=== PATIENT | female | born 1955 | race Caucasian/White ===

== ENCOUNTER 2017-08-31 06:23 | Emergency (ER) | payer SELFPAY ==
[2017-08-31] MEDS ORDERED: Ketorolac INJ* 60 MG/2 ML VIAL IM ONE (07:27)
[2017-08-31 08:21] LABS: ABS Basophils 0.1 10^3/ul (0-0.2); ABS Eosinophils 0.1 10^3/ul (0-0.6); ABS Lymphocytes 1.1 10^3/ul (1.0-4.8); ABS Monocytes 0.3 10^3/ul (0-0.8); ABS Neutrophils 3.9 10^3/ul (1.5-7.7); ABS Nucleated RBC 0 10^3/ul; Eosinophil % 1.8 % (0-6); Hematocrit 43 % (35-47); Hemoglobin 14.4 g/dl (12.0-16.0); Lymphocyte % 20.3 % (25-47); Mean Corpuscular HGB Conc 34 g/dl (31-36); Mean Corpuscular Hemoglobin 31 pg (27-31); Mean Corpuscular Volume 91 fL (80-97); Mean Platelet Volume 8.2 um3 (7.4-10.4); Nucleated Red Blood Cells % 0.1; Platelet Count 201 10^3/ul (150-450); Red Blood Count 4.68 10^6/ul (4.0-5.4); Red Cell Distribution Width 14 % (10.5-15); White Blood Count 5.5 10^3/ul (3.5-10.8)
[2017-08-31 08:31] LABS: EGFR Non-African American 107.5 (>60)
--- NOTE | 2017-08-31 08:42 | RAD ---
INDICATION: 3 days lower lateral RIGHT rib pain without proceeding injury. COMPARISON: March 15, 2016 TECHNIQUE: Dual energy PA and routine lateral views of the chest were obtained. 3 view RIGHT unilateral rib series. REPORT: Elevated lung volumes and both diffuse mild prominence of the interstitial markings and patchy rarefaction of the mid to upper lung zone interstitial markings. RIGHT nipple shadow noted. No focal pulmonary lesion, compelling alveolar consolidation, pleural effusion, pneumothorax. The heart, pulmonary vasculature, and mediastinal contours are unremarkable. Thoracic degenerative spondylosis. No RIGHT rib fracture or suspicious focal osseous lesion evident. Unremarkable soft tissue contours. Gallbladder fossa level surgical clips. IMPRESSION: Stigmata of obstructive lung disease. No acute pulmonary or cardiac process evident. No RIGHT rib fracture evident.
[2017-08-31 09:22] LABS: Urine Appearance Clear; Urine Blood Negative (Negative); Urine Color Straw; Urine Ketones Negative (Negative); Urine Protein Negative (Negative); Urine Specific Gravity 1.009 (1.010-1.030); Urine Urobilinogen Negative (Negative)
[2017-08-31 11:07] VITALS: BP 130/87
--- NOTE | 2017-08-31 14:59 | ED ---
Agapito Lan Julia, scribed for Nereida Paul MD on 08/31/17 at 0725 . HPI Chest Pain - HPI Summary HPI Summary: This patient is a 62 year old F presenting to [facility] with a chief complaint of right anterior lower rib pain past few days. Patient denies fever, nausea, vomiting, and recent trauma. The patient rates the pain 8/10 in severity. Pt denies calf pain. Symptoms aggravated by movement and deep breaths. PMHx includes cholecystectomy. Denies PMHx of DVT, HTN, and DM - History of Current Complaint Chief Complaint: EDAbdPain Time Seen by Provider: 08/31/17 07:11 Hx Obtained From: Patient Onset/Duration: Started Days Ago Pain Intensity: 8 Pain Scale Used: 0-10 Numeric Chest Pain Location: Right Anterior - lower ribs Aggravating Factor(s): Movement, Deep Breaths Associated Signs and Symptoms: Positive: Negative. Negative: Calf Pain/Swelling - Allergy/Home Medications Allergies/Adverse Reactions: Allergies Allergy/AdvReac Type Severity Reaction Status Date / Time No Known Allergies Allergy Verified 08/31/17 06:27 Home Medications: Home Medications NK [No Home Medications Reported] 08/31/17 [History Confirmed 08/31/17] PMH/Surg Hx/FS Hx/Imm Hx Endocrine/Hematology History: Denies: Hx Diabetes Cardiovascular History: Denies: Hx Deep Vein Thrombosis, Hx Hypertension Infectious Disease History: No Infectious Disease History: Denies: Traveled Outside the [place] in Last 30 Days - Family History Known Family History: Positive: Diabetes - brother, Other - mother lung cancer - Social History Alcohol Use: None Substance Use Type: Reports: None Hx Tobacco Use: Yes Smoking Status (MU): Light Every Day Tobacco Smoker Review of Systems Negative: Fever Positive: Chest Pain Negative: Vomiting, Nausea All Other Systems Reviewed And Are Negative: Yes Physical Exam - Summary Physical Exam Summary: Appearance: Well-appearing, Well-nourished Skin: Warm, Dry, No rash Eyes: Normal, PERRL, EOMI, sclera anicteric ENT: Normal Neck: Supple, nontender Respiratory: Clear to auscultation Chest: TTP of the right anterior lower ribs Cardiovascular: S1, S2, no murmur, no rub, no gallop, Abdomen: Soft, nontender, no organomegaly Bowel sounds: Present Musculoskeletal: Strength/ROM Intact, no edema, pulses symmetrical tenderness to the R anterior chest and lower ribs Neurological: Normal, A&Ox3, cranial nerves II-XII WNL, follows commands, gait not tested, sensation intact to pin and light touch Psychiatric: affect normal, behavior appropriate, dressed appropriately, judgment intact Triage Information Reviewed: Yes Vital Signs On Initial Exam: Initial Vitals Temp Pulse Resp BP Pulse Ox 97.1 F 71 16 106/62 100 08/31/17 06:25 08/31/17 06:25 08/31/17 06:25 08/31/17 06:25 08/31/17 06:25 Vital Signs Reviewed: Yes Diagnostics - Vital Signs Vital Signs Temp Pulse Resp BP Pulse Ox 08/31/17 07:18 61 111/73 99 08/31/17 07:00 68 98 08/31/17 06:49 68 99 08/31/17 06:48 65 110/75 99 08/31/17 06:25 97.1 F 71 16 106/62 100 - Laboratory Lab Results: Lab Results 08/31/17 08/31/17 08/31/17 Range/Units 08:05 08:05 08:06 WBC 5.5 (3.5-10.8) 10^3/ul RBC 4.68 (4.0-5.4) 10^6/ul Hgb 14.4 (12.0-16.0) g/dl Hct 43 (35-47) % MCV 91 (80-97) fL MCH 31 (27-31) pg MCHC 34 (31-36) g/dl RDW 14 (10.5-15) % Plt Count 201 (150-450) 10^3/ul MPV 8.2 (7.4-10.4) um3 Neut % (Auto) 70.7 (38-83) % Lymph % (Auto) 20.3 L (25-47) % Livingston % (Auto) 6.2 (0-7) % Eos % (Auto) 1.8 (0-6) % Baso % (Auto) 1.0 (0-2) % Absolute Neuts (auto) 3.9 (1.5-7.7) 10^3/ul Absolute Lymphs (auto) 1.1 (1.0-4.8) 10^3/ul Absolute Monos (auto) 0.3 (0-0.8) 10^3/ul Absolute Eos (auto) 0.1 (0-0.6) 10^3/ul Absolute Basos (auto) 0.1 (0-0.2) 10^3/ul Absolute Nucleated RBC 0 10^3/ul Nucleated RBC % 0.1 APTT 29.0 (26.0-36.3) seconds D-Dimer, Quantitative < 200 (Less Than 230) ng/mL Sodium 139 (139-145) mmol/L Potassium 4.3 (3.5-5.0) mmol/L Chloride 104 (101-111) mmol/L Carbon Dioxide 30 (22-32) mmol/L Anion Gap 5 (2-11) mmol/L BUN 12 (6-24) mg/dL Creatinine 0.57 (0.51-0.95) mg/dL Est GFR ( Amer) 138.2 (>60) Est GFR (Non-Af Amer) 107.5 (>60) BUN/Creatinine Ratio 21.1 H (8-20) Glucose 99 (70-100) mg/dL Lactic Acid (0.5-2.0) mmol/L Calcium 9.3 (8.6-10.3) mg/dL Total Bilirubin 0.60 (0.2-1.0) mg/dL AST 10 L (13-39) U/L ALT 10 (7-52) U/L Alkaline Phosphatase 77 (34-104) U/L Troponin I 0.00 (<0.04) ng/mL B-Natriuretic Peptide ( - 100) pg/mL Total Protein 6.1 L (6.4-8.9) g/dL Albumin 3.8 (3.2-5.2) g/dL Globulin 2.3 (2-4) g/dL Albumin/Globulin Ratio 1.7 (1-3) Lipase < 10 L (11.0-82.0) U/L Urine Color Urine Appearance Urine pH (5-9) Ur Specific Dingle (1.010-1.030) Urine Protein (Negative) Urine Ketones (Negative) Urine Blood (Negative) Urine Nitrate (Negative) Urine Bilirubin (Negative) Urine Urobilinogen (Negative) Ur Leukocyte Esterase (Negative) Urine WBC (Auto) (Absent) Urine RBC (Auto) (Absent) Ur Squamous Epith Cells (Absent) Urine Bacteria (Absent) Urine Glucose (Negative) 08/31/17 08/31/17 08/31/17 Range/Units 08:06 08:06 09:05 WBC (3.5-10.8) 10^3/ul RBC (4.0-5.4) 10^6/ul Hgb (12.0-16.0) g/dl Hct (35-47) % MCV (80-97) fL MCH (27-31) pg MCHC (31-36) g/dl RDW (10.5-15) % Plt Count (150-450) 10^3/ul MPV (7.4-10.4) um3 Neut % (Auto) (38-83) % Lymph % (Auto) (25-47) % Livingston % (Auto) (0-7) % Eos % (Auto) (0-6) % Baso % (Auto) (0-2) % Absolute Neuts (auto) (1.5-7.7) 10^3/ul Absolute Lymphs (auto) (1.0-4.8) 10^3/ul Absolute Monos (auto) (0-0.8) 10^3/ul Absolute Eos (auto) (0-0.6) 10^3/ul Absolute Basos (auto) (0-0.2) 10^3/ul Absolute Nucleated RBC 10^3/ul Nucleated RBC % APTT (26.0-36.3) seconds D-Dimer, Quantitative (Less Than 230) ng/mL Sodium (139-145) mmol/L Potassium (3.5-5.0) mmol/L Chloride (101-111) mmol/L Carbon Dioxide (22-32) mmol/L Anion Gap (2-11) mmol/L BUN (6-24) mg/dL Creatinine (0.51-0.95) mg/dL Est GFR ( Amer) (>60) Est GFR (Non-Af Amer) (>60) BUN/Creatinine Ratio (8-20) Glucose (70-100) mg/dL Lactic Acid 1.3 (0.5-2.0) mmol/L Calcium (8.6-10.3) mg/dL Total Bilirubin (0.2-1.0) mg/dL AST (13-39) U/L ALT (7-52) U/L Alkaline Phosphatase (34-104) U/L Troponin I (<0.04) ng/mL B-Natriuretic Peptide 55 ( - 100) pg/mL Total Protein (6.4-8.9) g/dL Albumin (3.2-5.2) g/dL Globulin (2-4) g/dL Albumin/Globulin Ratio (1-3) Lipase (11.0-82.0) U/L Urine Color Straw Urine Appearance Clear Urine pH 7.0 (5-9) Ur Specific Dingle 1.009 L (1.010-1.030) Urine Protein Negative (Negative) Urine Ketones Negative (Negative) Urine Blood Negative (Negative) Urine Nitrate Negative (Negative) Urine Bilirubin Negative (Negative) Urine Urobilinogen Negative (Negative) Ur Leukocyte Esterase Trace A (Negative) Urine WBC (Auto) Absent (Absent) Urine RBC (Auto) Absent (Absent) Ur Squamous Epith Cells Present A (Absent) Urine Bacteria Absent (Absent) Urine Glucose Negative (Negative) Result Diagrams: 08/31/17 08:05 08/31/17 08:05 Lab Statement: Any lab studies that have been ordered have been reviewed, and results considered in the medical decision making process. - Radiology CXR Radiology Interpretation Completed By: Radiologist - Stigmata of obstructive lung disease. No acute pulmonary or cardiac process evident. No RIGHT rib fracture evident. Dr. Paul has reviewed this report. R Rib XR Xray Interpretation: No Acute Changes - seen in CXR - EKG 0738 Cardiac Rate: NL EKG Rhythm: Sinus Rhythm - 60 BPM Re-Evaluation - Re-Evaluation 1 Re-Evaluation Time: 10:40 Comment: Discussed results with patient. Chest Pain Course/Dx - Course Course Of Treatment: 62 y/o F presents to the ED with right anterior rib pain. Work up is unremarkable with a negative D-dimer and troponin. CXR and Rib XR were obtained and are unremarkable. Toradol was given with much improvement. Pt' s pain is most likely musculoskeltal pain due to reproducable nature. Pt requested a note for work which was granted. Pt is hemodynamically stable and is safe for discharge. - Diagnoses Provider Diagnoses: Rib pain Discharge - Sign-Out/Discharge Documenting (check all that apply): Discharge/Admit/Transfer - Discharge Plan Condition: Stable Disposition: HOME Patient Education Materials: Chest Pain (ED), Abdominal Pain (ED), Chest Wall Pain (ED) Forms: *Work Release Referrals: [facility] [place] [facility]ERR[facility] [Outside] (Find a primary care physician if needed. ) - Billing Disposition and Condition Condition: STABLE Disposition: HOME The documentation as recorded by the Agapito menard Julia accurately reflects the service I personally performed and the decisions made by , Nereida Paul MD.
--- NOTE | 2017-08-31 16:07 | RAD ---
INDICATION: 3 days of atraumatic right lateral rib pain COMPARISON: Same day chest x-ray TECHNIQUE: 3 views of the right ribs were obtained. FINDINGS: No fracture or significant focal osseous abnormality is seen. No pneumothorax is apparent. Limited views demonstrate grossly clear lungs. IMPRESSION: No radiographically apparent displaced rib fracture or pneumothorax. If the patient's symptoms persist, follow-up imaging is recommended.
== END 2017-08-31 11:06 | disposition home or self-care (01) ==
LOC: ED 06:23
DX: R07.81 Pleurodynia (principal); F17.200 Nicotine dependence, unspecified, uncomplicated; Z90.49 Acquired absence of other specified parts of digestive tract
CPT/HCPCS: 36415; 71046; 80053; 81003; 81015; 83605; 83690; 83880; 84484; 85025; 85379; 85730; 87086; 93005; 96372; 99283; J1885

== ENCOUNTER 2019-01-04 10:35 | Emergency (ER) | payer SELFPAY ==
[2019-01-04] MEDS ORDERED: NS 0.9% 1000 ML** 1,000 ML IV ONE (10:59)
--- NOTE | 2019-01-04 11:04 | ED ---
Dizziness - HPI Summary HPI Summary: The patient is a 63 y/o F presenting to [facility] accompanied by son with a chief complaint of sudden onset dizziness onset this morning while she was work. She reports that she was standing at work when she began coughing and felt lightheaded. She states she has been coughing with phlegm production likely secondary to a cold that she currently has. She has mild SOB and chest congestion with the cough. During the event, she was diaphoretic. She additionally notes that she has been experiencing myalgia in the bilateral thighs for a while that is worse on the right side. She denies any fever, chills, erythema of eyes, sore throat, abd pain, nausea, vomiting, dysuria, hematuria, rash, or syncope. She notes that she is exposed to children with cold symptoms as well. No cardiac PMHx or FHx. Light every day smoker, no EtOH, no substance use. Medications reviewed. Allergies noted. - History Of Current Complaint Chief Complaint: EDDizziness Stated Complaint: LIGHTHEADED,COUGH PER PT Time Seen by Provider: 01/04/19 10:40 Hx Obtained From: Patient Onset/Duration: Suddenly Timing: Hours Severity Initially: Moderate Severity Currently: Mild Character: Lightheaded, Dizzy Aggravating Factor(s): Nothing Alleviating Factor(s): Nothing Associated Signs And Symptoms: Positive: Diaphoresis, SOB, Other: - Positive: productive cough, myalgia in the bilateral thighs. Negative: erythema of eyes, sore throat, abd pain, dysuria, hematuria, rash, syncope.. Negative: Nausea, Vomiting, Chest Pain, Fever, Chills - Allergies/Home Medications Allergies/Adverse Reactions: Allergies Allergy/AdvReac Type Severity Reaction Status Date / Time No Known Allergies Allergy Verified 01/04/19 10:36 PMH/Surg Hx/FS Hx/Imm Hx Endocrine/Hematology History: Denies: Hx Diabetes Cardiovascular History: Denies: Hx Deep Vein Thrombosis, Hx Hypertension - Surgical History Surgical History: None Surgery Procedure, Year, and Place: none Infectious Disease History: No Infectious Disease History: Denies: Traveled Outside the [place] in Last 30 Days - Family History Known Family History: Positive: Diabetes - brother, Other - mother lung cancer Negative: Cardiac Disease - Social History Alcohol Use: None Hx Substance Use: No Substance Use Type: Reports: None Hx Tobacco Use: Yes Smoking Status (MU): Light Every Day Tobacco Smoker Review of Systems Positive: Skin Diaphoresis. Negative: Fever, Chills Negative: Erythema Negative: Sore Throat Negative: Chest Pain Positive: Shortness Of Breath, Cough - productive Negative: Abdominal Pain, Vomiting, Nausea Negative: dysuria, hematuria Positive: Myalgia - bilateral thighs worse on right Negative: Rash Neurological: Other - dizziness/lightheadedness Negative: Syncope All Other Systems Reviewed And Are Negative: Yes Physical Exam - Summary Physical Exam Summary: Constitutional: Well-developed, Well-nourished, Alert. (-) Distressed Skin: Warm, Dry HENT: Normocephalic; Atraumatic Eyes: Conjunctiva normal Neck: Musculoskeletal ROM normal neck. (-) JVD, (-) Stridor, (-) Tracheal deviation Cardio: Rhythm regular, rate normal, Heart sounds normal; Intact distal pulses; The pedal pulses are 2+ and symmetric. Radial pulses are 2+ and symmetric. (-) Murmur Pulmonary/Chest wall: Diminished breath sounds. (-) Respiratory distress, (-) Wheezes, (-) Rales Abd: Soft. (-) Tenderness, (-) Distension, (-) Guarding, (-) Rebound Musculoskeletal: (-) Edema Lymph: (-) Cervical adenopathy Neuro: Alert, Oriented x3, Strength normal, Cranial nerves II-XII are grossly intact. (-) Dysmetria, (-) Nystagmus, (-) Ataxia by finger to nose testing, (-) Sensory deficit. Psych: Mood and affect Normal Triage Information Reviewed: Yes Vital Signs On Initial Exam: Initial Vitals Temp Pulse Resp BP Pulse Ox 97.8 F 78 18 130/69 94 01/04/19 10:36 01/04/19 10:36 01/04/19 10:36 01/04/19 10:36 01/04/19 10:36 Vital Signs Reviewed: Yes Diagnostics - Vital Signs Vital Signs Temp Pulse Resp BP Pulse Ox 01/04/19 10:36 97.8 F 78 18 130/69 94 - Laboratory Result Diagrams: 01/04/19 10:56 01/04/19 10:56 Lab Statement: Any lab studies that have been ordered have been reviewed, and results considered in the medical decision making process. - Radiology CXR Radiology Interpretation Completed By: Radiologist Summary of Radiographic Findings: Impression: No active cardiopulmonary disease. ED physician has reviewed this report. - EKG 1046 Cardiac Rate: NL - 76 bpm EKG Rhythm: Sinus Rhythm Summary of EKG Findings: NSR at 76 bpm. No STEMI. Re-Evaluation - Re-Evaluation First Eval Re-Evaluation Time: 12:20 Change: Improved Comment: Pt states improvment with respiratory treatment. We discussed all results and discharge plan. Dizzy Course/Dx - Course Course Of Treatment: Pt is a 63 y/o F with cc of sudden onset episode of dizziness and lightheadedness while standing at work today with productive cough , SOB, and diaphoresis during the event. Additionally c/o myalgia in the bilateral thighs but denies any fever, chills, or CP. No cardiac PMHx of FHx. Upon physical exam, the patient exhibits diminished breath sounds. Blood work reveals RBCs 4.91, MCH 32, BUN/creatinine ratio 22.8, and TSH 0.21, but is otherwise insignificant for abnormalities. UA obtained and reveals trace ketones , 1+ blood, 2+ RBCs, and presence of squamous epithelial cells. EKG at 1046 reveals NSR at 76 bpm. Chest x-ray impression is negative for active cardiopulmonary disease. In the ED course, the patient was administered fluids, Duoneb, and Prednisone. There are no signs of PNA or sepsis. We discussed all results and plan for discharge to follow up with her PCP for hematuria today, rx for Prednisone and Albuterol inhaler. She understands and agrees with this plan. - Diagnoses Provider Diagnoses: Bronchitis, Hematuria Discharge ED - Sign-Out/Discharge Documenting (check all that apply): Patient Departure - Patient will be discharged home. Patient Received Moderate/Deep Sedation with Procedure: No - Discharge Plan Condition: Improved Disposition: HOME Prescriptions: Albuterol HFA INHALER* [Ventolin HFA Inhaler*] 1 - 2 puff INH Q4H PRN #1 mdi PRN Reason: Cough predniSONE TAB* [Deltasone TAB*] 50 mg PO DAILY #4 tab Patient Education Materials: Dehydration (ED), Acute Bronchitis (ED), Hematuria (ED) Forms: *Work Release Referrals: Nehal Zelaya NP [Primary Care Provider] - 2 Days Additional Instructions: Follow up with your primary care provider in 2-3 days concerning the blood in your urine. Return to the emergency department for any new or worsening symptoms. - Billing Disposition and Condition Condition: IMPROVED Disposition: Home - Attestation Statements Document Initiated by Sita: Yes Documenting Scribe: Ami Moscoso Provider For Whom Sita is Documenting (Include Credential): Dr. Severiano Roger MD Scribe Attestation: Ami Lan scribed for Dr. Severiano Roger MD on 01/12/19 at 1153. Scribe Documentation Reviewed: Yes Provider Attestation: The documentation as recorded by the Ami menard accurately reflects the service I personally performed and the decisions made by me, Dr. Severiano Roger MD Status of Scribe Document: Viewed
[2019-01-04] MEDS ORDERED: Albuterol/Ipratropium NEB.SOL* Albuterol 2.5 MG/Ipratropium 0.5 MG 3 ML INH ONE (11:06)
[2019-01-04 11:11] LABS: ABS Eosinophils 0.1 10^3/ul (0-0.6); ABS Lymphocytes 1.3 10^3/ul (1.0-4.8); ABS Monocytes 0.3 10^3/ul (0-0.8); ABS Neutrophils 4.6 10^3/ul (1.5-7.7); Eosinophil % 1.5 %; Hematocrit 45 % (35-47); Hemoglobin 15.4 g/dL (12.0-16.0); Lymphocyte % 20.1 %; Mean Corpuscular HGB Conc 34 g/dL (31-36); Mean Corpuscular Hemoglobin 32 pg (27-31); Mean Corpuscular Volume 92 fL (80-97); Mean Platelet Volume 8.5 fL (7.4-10.4); Nucleated Red Blood Cells % 0.1; Platelet Count 228 10^3/uL (150-450); Red Blood Count 4.91 10^6 /uL (3.70-4.87); Red Cell Distribution Width 13 % (10-15); White Blood Count 6.2 10^3/uL (3.5-10.8)
[2019-01-04 11:30] LABS: Troponin I 0.01 ng/mL (<0.04)
[2019-01-04 11:31] LABS: Albumin 4.2 g/dL (3.2-5.2); Albumin/Globulin Ratio 1.9 (1-3); BUN/Creatinine Ratio 22.8 (8-20); Calcium 9.6 mg/dL (8.6-10.3); EGFR African American 129.6 (>60); EGFR Non-African American 107.1 (>60); Globulin 2.2 g/dL (2-4); Potassium 3.8 mmol/L (3.5-5.0); Total Bilirubin 0.5 mg/dL (0.2-1.0); Total Protein 6.4 g/dL (6.4-8.9)
[2019-01-04 11:43] LABS: TSH (Thyroid Stimulating Horm) 0.21 mcIU/mL (0.34-5.60)
[2019-01-04 12:08] LABS: Urine Appearance Cloudy; Urine Bacteria Absent (Absent); Urine Bilirubin Negative (Negative); Urine Blood 1+ (Negative); Urine Color Yellow; Urine Glucose Negative (Negative); Urine Ketones Trace (Negative); Urine Nitrite Negative (Negative); Urine Protein Negative (Negative); Urine Red Blood Cell 2+(6-10/hpf) (Absent); Urine Specific Gravity 1.025 (1.010-1.030); Urine Squamous Epithelial Cell Present (Absent); Urine Urobilinogen Negative (Negative); Urine White Blood Cell Trace(0-5/hpf) (Absent)
[2019-01-04] MEDS ORDERED: predniSONE TAB* 20 MG PO ONE (12:16)
[2019-01-04 12:47] VITALS: BP 126/75
== END 2019-01-04 12:35 | disposition home or self-care (01) ==
LOC: ED 10:35
DX: J40 Bronchitis, not specified as acute or chronic (principal); R31.9 Hematuria, unspecified; F17.200 Nicotine dependence, unspecified, uncomplicated; Z79.899 Other long term (current) drug therapy
CPT/HCPCS: 36415; 71045; 80053; 81003; 81015; 83605; 83735; 84443; 84484; 85025; 87086; 93005; 96360; 96361; 99284; A9270-GY; J7512

== ENCOUNTER 2019-07-15 10:18 | Emergency (ER) | payer SELFPAY ==
--- OUTSIDE RECORDS SUMMARY | 2019-07-15 10:25 | XMS REPORT | Continuity of Care Document ---
:1955 Author Organization [address] [place] [address] [address] [place] [id number] Phone Care Team Providers Name Role Phone ARIELLA HE NP Unavailable Unavailable Allergies, Adverse Reactions, Alerts Substance Reaction Status No Known Allergies Active Medications Medication Instructions Dosage Effective Dates Status Comments (start - stop) ibuprofen 600 mg take 1 tablet by oral 600 MG - Active tablet route every 6 hours as needed with food prednisone 10 mg take 4 tabs for 4 - Active tablet days, then 3 tabs for 3 days, then 2 tabs for 2 days, then 1 tab for 1 day Problems Condition Effective Dates (start - stop) Clinical Status Hematuria, unspecified type Hematuria, unspecified type Hand pain, right Encounter for routine adult health examination without abnormal findings Bicipital tendonitis of left shoulder Body mass index (BMI) of 23.0 to 23.9 in adult Acute non-recurrent frontal sinusitis Screening mammogram, encounter for Procedures Procedure Date Urinalysis, automated, w/o scope Results Test Name Date and Time Measure Units Reference Range Abnormal Flag Status Comments Panel Description: Bacteria identified Preliminary SPECIMEN: collection methods: URINE in Urine by Culture CLEAN See Preliminary Name: NICK MADISON VOIDED 11:24:00 comment : 1955 Sex: Salgado# Loc URINE [facility] Site [id number] CULT [facility] URNE 01/30/19 CLEAN VOIDED URINE CULT PRELIM NO GROWTH LESS THAN 1 DAY.REIS FOR RESULTS: - NEW RESULTATT.PHYS.: ARIELLA HE LOCATION: [facility]--ADM.DATE: 01/30/19 PATIENT : NICK MADISON MICROBIOLOGYPRINTED: 01/31/19 09:54 REGULAR 2 PAGE: 2 of 1 1NG,,[id number],NG,,[id number],

Panel Description: Non-Supercalender Operator Cytology Specimen Final Non-Supercalender Operator Cytology 11:24:00 SEE BELOW Final NG,, [id number], Specimen Briseida Ramesh M.D., Medical Office Technician - Dept. of Laboratory Medicine [facility], [address] [place] [address] Pgmz NICK MADISON [id number] 1955 63 Y MR# [id number] [facility] Lab ACC [id number] [facility] 01/30/[address] 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 - Negative for high-grade urothelial carcinoma([facility]) - Urothelial cells, squamous cells, crystals and few neutrophils present. Aviva Taylor M.D., Pathologist Report 01/31/2019 Report Signed ed: 3:58 PM Electronically Specimen Received Urine Clinical Data: rec'd 30mL of slightly hazy light yellow fluid (50%ETOH) Total # of 1 Slides: Cytospins 1 Slides: Aviva Taylor M.D., Pathologist 01/31/2019 3:58 PM 1

Panel Description: Bacteria identified in Final SPECIMEN: collection methods : URINE Urine by Culture CLEAN See Final Name: NICK MADISON VOIDED 11:24:00 comment : 1955 Sex: Salgado# URINE Loc [facility] Site CULT [id number] [facility] URNE 01/30/19 CLEAN VOIDED URINE CULT FINAL 10,000- 100,000 CFU/mL PAULA SUGGESTIVE OF UROGENITAL SKIN CONTAMINATIONKEY FOR RESULTS: - NEW RESULTATT.PHYS.: RISING, ARIELLA LOCATION: [facility]--ADM.DATE: 01/30/19 PATIENT : NICK MADISON MICROBIOLOGYPRINTED: 02/01/19 09:02 REGULAR 2 PAGE: 2 of 1 1NG,,[id number],NG,,[id number],

Encounters Encounter Practice Location Reason(s) Diagnoses Date Provider Providers Description For Visit Copied on Encounter 0001 - S Repeat Hematuria, Jan-0 [facility] [employer], Primary urine unspecified type ARIELLA. Care (chief [address] , [facility] complaint) [place], [place], Street, [address]. Tariq tel:[phone] [place], [place], [address], [place] tel:[phone] - S Hematuria, Sep-2 [facility] [employer], Primary unspecified type [place]. Care [address] [facility], [place], [place], Street, [address]. Tariq tel:[phone] [place], [place], [address], [place] tel:[phone] - S Hand pain, right Royce-0 [facility] [employer], Primary [place]. Care [address] , [place], [place], Street, [address]. Tariq tel:[phone] [place], [place], [phone], [place] tel:+ [phone] - S Encounter for Apr-0 [facility] [employer], Primary routine adult 3201 ARIELLA. Care health examination [address] , [facility] without abnormal [place], [place], [place], findingsBicipital [address]. Tariq tendonitis of left tel:[phone] [place], [place], shoulderBody mass [phone], [place] index (BMI) of 23.0 tel:+ to 23.9 in adult [id number] 0001 - S Acute non-recurrent Mar-0 [facility] [employer], Primary frontal 1-201 ARIELLA. Care sinusitisScreening [address] [facility], [facility] [place] mammogram, [place], [place], [place], [place] [address]. Tariq tel:[phone] [place], [place], [address], [phone] Family History Family Member Diagnosis Age At Onset Family history of Diabetes mellitus Mother Cancer, unknown Father Heart disease Immunizations Vaccine Date Status Comments Influenza, injectable, administered Source: New Immunization quadrivalent, preservative Record free, split virus 3 years or older, Fluarix Quad [id number] Payers Payer name Insurance type Covered alliance party ID Authorization(s) Henrique [id number] [facility] [id number] [facility] [id number] Social History Type Description Quantity Date Captured Comments Alcohol Use Details Unknown Caffeine Use Details Unknown Tobacco Use Status Smoking Status Unknown Vital Signs Date / Height Weight BMI Pulse Blood Temperature Respiratory Body Head BMI Time: Rate Pressure Rate Surface Circumference percentile Area Unknown Chief Complaint And Reason For Visit Most recent encounter only, dated '01/30/2019 10:29'. Repeat urine ( chief complaint). Description: Presents for repeat urine as requested. Reason For Referral Reason For Referral Unknown Plan Of Care Date Type Action Status Referral Ordered: ordered Xray Hand complete (Must choose side) Right Referral Ordered: ordered Mammogram, Screening, Bilateral, 2 Views Each Date Type Problem Goal Intervention Status Start Date Unknown History Of Present Illness Encounter Date Complaint History Of Present Illness Repeat urine Presents for repeat urine as requested. Functional Status Encounter Date Functional Assessment Cognitive Assessment Unknown Medications Administered Medication Instructions Dosage Effective Dates (start - stop) Status Comments Drug Treatment Unknown Instructions Date Instruction Additional Information Maintain adequate hydration. May Related to Hematuria, unspecified drink cranberry juice.Can use Tylenol type or Ibuprofen for pain relief. Continue Ibuprofen. Ice as needed Related to Hand pain, right 15-20min on and 30-40 min off as tolerated. Will re-evaluate in 2 weeks. Try at home exercises. Normal Exam noted. Patient deferred Related to Encounter for routine her pap and clinical breast exam adult health examination without today due to arm being in a sling, abnormal findings states she will reschedule an appointment for that. Order for screening mammogram given last appointment, Patient is going to call [facility] to make appointment once arm is feeling better. Complete lab work. Refused Colonoscopy at this time. take prednisione 4 tabs for 4 days, Related to Bicipital tendonitis of then 3 tabs for 3 days, then 2 tabs left shoulder for 2 days, then 1 tab for 1 day. Continue with Ibuprofen 600mg as needed for pain as directed by walk-in. Rest and apply Ice as needed. Keep arm in Sling. Follow up if symptoms do not improve. Use humidifier as bedtime, normal Related to Acute non-recurrent saline nasal spray as needed. drink frontal sinusitis plenty of fluids, and rest.Vix Vapor rub for cough.Tylenol or Motrin for pain Start Amoxicillin 1 tab 2xday for 10 daysIf symptoms persist or worsen or fever develops of 101 please contact office. complete mammogram. come back for Related to Screening mammogram, annual physical for blood work encounter for
[2019-07-15] MEDS ORDERED: Butalb/Acetamin/Caff TAB* 1 TAB PO ONE (10:40)
--- NOTE | 2019-07-15 10:41 | ED ---
Respiratory - HPI Summary HPI Summary: 63 y/o female presented to [facility] for BANKS, cough, myalgia, sujective fever, and sore throat present for 4 days. No V/D, or CP. 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 Pt took Tylenol last night for here BANKS, but it did not help. Pt notes hx of appendectomy and cholesystectomy, and fhx of cx. Pt smokes cigarettes every day, but does not drink or do drugs. Medications reviewed. Allergies noted. Home Medications Medication Instructions Recorded Confirmed Type Albuterol HFA INHALER* [Ventolin 1 - 2 puff INH Q4H PRN #1 mdi 01/04/19 Rx HFA Inhaler*] predniSONE 50 mg TAB [Deltasone 50 50 mg PO DAILY #4 tab 01/04/19 Rx mg TAB] - History of Current Complaint Stated Complaint: FEVER,SOB PER SON Time Seen by Provider: 07/15/19 10:19 Hx Obtained From: Patient Onset/Duration: Lasting Days, Still Present Character: Cough (Nonproductive) Alleviating Factor(s): OTC Medications - Tylenol, ineffective Associated Signs and Symptoms: Fever - Allergy/Home Medications Allergies/Adverse Reactions: Allergies Allergy/AdvReac Type Severity Reaction Status Date / Time No Known Allergies Allergy Verified 01/04/19 10:36 Home Medications: Home Medications Albuterol HFA INHALER* [Ventolin HFA Inhaler*] 1 - 2 puff INH Q4H PRN #1 mdi 04/12 [Rx] predniSONE 50 mg TAB [Deltasone 50 mg TAB] 50 mg PO DAILY #4 tab 01/04/19 [Rx] Butalb/Acetamin/Caff TAB* [Fioricet TAB*] 1 tab PO Q8HR PRN #12 tab MDD 3 tablets 07/15/19 [Rx] PMH/Surg Hx/FS Hx/Imm Hx Endocrine/Hematology History: Denies: Hx Diabetes Cardiovascular History: Denies: Hx Deep Vein Thrombosis, Hx Hypertension - Surgical History Surgery Procedure, Year, and Place: none Infectious Disease History: Denies: Traveled Outside the [place] in Last 30 Days - Family History Known Family History: Positive: Diabetes - brother, Other - mother lung cancer Negative: Cardiac Disease - Social History Alcohol Use: None Hx Substance Use: No Substance Use Type: Reports: None Hx Tobacco Use: Yes Smoking Status (MU): Light Every Day Tobacco Smoker Review of Systems Positive: Fever Positive: Sore Throat Negative: Chest Pain Positive: Cough Negative: Vomiting, Diarrhea Positive: Myalgia Positive: Headache All Other Systems Reviewed And Are Negative: Yes Physical Exam - Summary Physical Exam Summary: Constitutional: Well-developed, Well-nourished, Alert. (-) Distressed Skin: Warm, Dry HENT: Normocephalic; Atraumatic Eyes: Conjunctiva normal Neck: Musculoskeletal ROM normal neck. (-) JVD, (-) Stridor, (-) Tracheal deviation Cardio: Rhythm regular, rate normal, Heart sounds normal; Intact distal pulses; Radial pulses are 2+ and symmetric. (-) Murmur Pulmonary/Chest wall: Effort normal. (-) Respiratory distress, (-) Wheezes, (-) Rales, Speaking full sentences, O2 Sat 95-97 on RA Abd: Soft, (-) tenderness, (-) Distension, (-) Guarding, (-) Rebound Musculoskeletal: (-) Edema Lymph: (+) Cervical adenopathy Neuro: Alert, Oriented x3, No meningismus Psych: Mood and affect Normal Triage Information Reviewed: Yes Vital Signs Reviewed: Yes Procedures - Sedation Patient Received Moderate/Deep Sedation with Procedure: No Diagnostics - Laboratory Lab Statement: Any lab studies that have been ordered have been reviewed, and results considered in the medical decision making process. - Radiology cxr Radiology Interpretation Completed By: Radiologist Summary of Radiographic Findings: IMPRESSION: No focal airspace opacification. If clinically warranted, consider biochemical. correlation. This report was reviewed by the ED physician. Disposition - Course Course Of Treatment: Patient is here with URI symptoms and headache. Patient is overall well-appearing and not hypoxic. Patient had negative chest x-ray, rapid influenza, strep throat swab. Patient was tested for covid 19 and given quarantine instructions. - Diagnoses Provider Diagnoses: Headache, Fever, Cough, Body aches Discharge ED - Sign-Out/Discharge Documenting (check all that apply): Patient Departure - dc - Discharge Plan Condition: Stable Disposition: HOME Prescriptions: Butalb/Acetamin/Caff TAB* [Fioricet TAB*] 1 tab PO Q8HR PRN #12 tab MDD 3 tablets PRN Reason: Headache Forms: COVID-19 Tested & Isolation Referrals: Nehal Zelaya NP [Primary Care Provider] - Additional Instructions: You were seen in the emergency department for coronavirus rule out. The department of health will contact you within 24 hours. Due to the pandemic, you should stay in your house and self quarantine. See the separate quarantine paper for further instructions. You should wear a mask if you're outside of your personal room. We encourage handwashing as well as limited contact with other people including the elderly and the immunocompromised. Please take medications as prescribed and avoid ibuprofen. If any studies were not completed at the time of discharge you will be called with the relevant results. Return to emergency department for severe trouble breathing, worsening or concerning symptoms It was a pleasure taking care of you today. - Billing Disposition and Condition Condition: STABLE Disposition: Home - Attestation Statements Document Initiated by Sita: Yes Documenting Scribe: Tony Woods Provider For Whom Sita is Documenting (Include Credential): Blaine Diaz MD Scribe Attestation: Tony Lan, scribed for Blaine Diaz MD on 07/15/19 at 1456. Scribe Documentation Reviewed: Yes Provider Attestation: The documentation as recorded by the Tony menard accurately reflects the service I personally performed and the decisions made by Blaine banks MD Status of Scribe Document: Viewed
[2019-07-15 11:07] LABS: Rapid Strep Molecular Negative (Negative)
[2019-07-15 11:26] LABS: Influenza A Molecular Negative (Negative); Influenza B Molecular Negative (Negative)
[2019-07-15 12:15] VITALS: BP 122/70
== END 2019-07-15 12:15 | disposition home or self-care (01) ==
LOC: ED 10:18
DX: R51 Headache (principal); R05 Cough; R50.9 Fever, unspecified; J02.9 Acute pharyngitis, unspecified; Z79.52 Long term (current) use of systemic steroids; Z79.899 Other long term (current) drug therapy; F17.210 Nicotine dependence, cigarettes, uncomplicated; Z20.828 Contact with and (suspected) exposure to other viral communicable diseases
CPT/HCPCS: 71045; 87651; 99283; A9270-GY; U0002